=== PATIENT | male | born 1990 | race Caucasian/White ===

== ENCOUNTER 2017-09-30 12:24 | Emergency (ER) | payer OTHER ==
[~2017-09-30] VITALS: Ht 182.9 cm; Wt 122.5 kg
[2017-09-30 12:30] VITALS: BP 172/98
--- NOTE | 2017-09-30 12:33 | NUR ---
PT BIBA TAKEN TO ER BED 3
--- NOTE | 2017-09-30 12:50 | NUR ---
PATIENT IS A 27 YO MALE BIB EMS FROM HOME FOR SORE THROAT AND COUGH, AWAKE AND ALERT NO SOB OR CHEST PAIN. DENIES VOMITING OR DIARRHEA. TO BED 3 VIA AMBULATION
[2017-09-30] MEDS ORDERED: diphenhydrAMINE 50 MG/ML VIAL IM ONE (13:30)
[2017-09-30] MEDS ORDERED: methylPREDNISolone SS 125 MG in WATER STERILE 2 ML IM ONE (13:30)
[2017-09-30 14:10] LABS: BASOPHILS # (AUTO) 0.5 K/uL (0.00-0.22); BASOPHILS % (AUTO) 4.2 % (0.0-2.0); EOSINOPHILS # (AUTO) 0.2 K/uL (0-0.4); EOSINOPHILS % (AUTO) 1.8 % (0.0-4.0); HEMATOCRIT 48.7 % (36-52); HEMOGLOBIN 16.3 g/dL (12.0-18.0); LYMPHOCYTES # (AUTO) 1.7 K/uL (2.0-11.5); LYMPHOCYTES % (AUTO) 12.8 % (20.5-51.1); MEAN CORPUSCULAR HEMOGLOBIN 30 pg (27-31); MEAN CORPUSCULAR HGB CONC 34 g/dL (33-37); MEAN CORPUSCULAR VOLUME 88 fL (80-94); MONOCYTES # (AUTO) 0.5 K/uL (0.8-1.0); MONOCYTES % (AUTO) 3.5 % (1.7-9.3); NEUTROPHILS # (AUTO) 10.1 K/uL (1.8-7.7); NEUTROPHILS % (AUTO) 77.7 % (42.2-75.2); PLATELET COUNT (AUTO) 248 K/uL (140-450); RED BLOOD CELL COUNT(AUTO) 5.54 MIL/uL (4.20-6.10)
[2017-09-30 14:21] LABS: ANION GAP 11.3 (8-16); CARBON DIOXIDE 29.5 mmol/L (21-32); POTASSIUM 3.8 mmol/L (3.5-5.1)
--- NOTE | 2017-09-30 14:34 | NUR ---
PT TO CT VIA W/C ACCOMPANIED BY COMMODITY ANALYST
--- NOTE | 2017-09-30 14:53 | NUR ---
Clive penn in ED - 09/30/17 at 1457 by MARINO pt returned from ct via wheelchair; returned to [facility] without incident
--- NOTE | 2017-09-30 14:55 | NUR ---
Patient back from CT via wheelchair.
--- NOTE | 2017-09-30 15:02 | NUR ---
mother by bedside; nad; vss; pt sts "tightness" in throat is lessen; pt is aox4, rr are even and unlabored; pt able to drink approx 4 oz of water without difficultly.
--- NOTE | 2017-09-30 16:00 | NUR ---
Patient discharged with v/s stable. Written and verbal after care instructions given and explained. Patient alert, oriented and verbalized understanding of instructions. Ambulatory with steady gait. All questions addressed prior to discharge. ID band removed. Patient advised to follow up with PMD. Rx of Prednisone and Benadryl given. Patient educated on indication of medication including possible reaction and side effects. Opportunity to ask questions provided and answered.
[2017-09-30 16:01] VITALS: BP 135/85
== END 2017-09-30 16:00 | disposition home or self-care (01) ==
LOC: MED 12:24
DX: T78.40XA Allergy, unspecified, initial encounter (principal); X58.XXXA Exposure to other specified factors, initial encounter; Z88.0 Allergy status to penicillin
CPT/HCPCS: 36415; 70360; 70491; 80048; 85025; 96372; 99285; J1200; J2930; Q9967

== ENCOUNTER 2018-08-11 00:39 | Inpatient (IN) | payer OTHER ==
[~2018-08-11] VITALS: Ht 182.9 cm; Wt 131.1 kg
--- NOTE | 2018-08-11 | NUR ---
V/S TAKEN AND RECORDED. EXPLAINED TO PATIENT ABOUT PAIN MANAGEMENT AND TEACH RELAXATION/BREATHING TECHNIQUE TO REDUCE PAIN. PATIENT VERBALIZED UNDERSTANDING. CALL LIGHT WITHIN REACH. WILL CONTINUE TO MONITOR.
[2018-08-11 00:40] VITALS: BP 153/90
--- NOTE | 2018-08-11 00:40 | NUR ---
PT BROUGHT TO ED BED 8
--- NOTE | 2018-08-11 00:43 | NUR ---
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 +N/V. DENIES DIARRHEA, FEVERS, CP OR SOB. ABD IS SOFT, NON TENDER, NON DISTENDED, ROUND. +BS X 4 QUADRANTS. GCS 15
[2018-08-11] MEDS ORDERED: NACL 0.9% 1,000 ML IV ONE ×2 (00:57→02:35)
[2018-08-11] MEDS ORDERED: DICYCLOMINE HCL LIQUID 20 MG, ALUMINUM HYD/MAG/SIMETHICONE 30 ML, LIDOCAINE VISCOUS 2% ... PO ONE ×3 (01:00)
--- NOTE | 2018-08-11 01:20 | NUR ---
BLOOD SPECIMEN DROPPED OFF IN LAB
[2018-08-11] MEDS ORDERED: MORPHINE SULFATE 4 MG/ML SYR IVP ONE (01:25)
[2018-08-11] MEDS ORDERED: ONDANSETRON 4 MG/2 ML VIAL IVP ONE (01:25)
[2018-08-11 01:32] LABS: BASOPHILS % (AUTO) 0.1 % (0.0-2.0); EOSINOPHILS # (AUTO) 0.2 K/uL (0-0.4); HEMATOCRIT 41.7 % (36-52); HEMOGLOBIN 14.3 g/dL (12.0-18.0); LYMPHOCYTES # (AUTO) 2.3 K/uL (2.0-11.5); MEAN CORPUSCULAR HEMOGLOBIN 30 pg (27-31); MEAN CORPUSCULAR HGB CONC 34 g/dL (33-37); MEAN CORPUSCULAR VOLUME 87.8 fL (80-94); MONOCYTES % (AUTO) 6.3 % (1.7-9.3); NEUTROPHILS % (AUTO) 77.6 % (42.2-75.2); PLATELET COUNT (AUTO) 230 K/uL (140-450); RED BLOOD CELL COUNT(AUTO) 4.75 MIL/uL (4.20-6.10); RED CELL DISTRIBUTION WIDTH 13.5 % (11.6-13.7); WHITE BLOOD COUNT (AUTO) 15.5 K/uL (4.8-10.8)
[2018-08-11 01:51] LABS: ALBUMIN 3.4 g/dL (3.4-5.0); ANION GAP 11.6 (8-16); CREATININE 1.1 mg/dL (0.7-1.3); POTASSIUM 3.6 mmol/L (3.5-5.1); TOTAL BILIRUBIN 0.5 mg/dL (0.0-1.0)
[2018-08-11] MEDS ORDERED: HYDROmorphone 1 MG/ML AMP IVP ONE ×3 (02:05→06:15)
[2018-08-11] MEDS ORDERED: HYDROcodone/APAP 5/325 MG 1 TAB TAB PO PRN (05:25)
[2018-08-11] MEDS ORDERED: DOCUSATE SODIUM 100 MG GELCAP PO PRN (05:25)
--- NOTE | 2018-08-11 06:34 | NUR ---
Patient will be admitted to care of [facility]. Admited to 111A. Will go to room TELE. Belongings list completed. Report to ELVIRA LOGAN.
[2018-08-11 07:05] VITALS: BP 147/90
--- NOTE | 2018-08-11 07:15 | NUR ---
RECEIVED REPORT FROM NIGHT MICA MINER FARI. PT SLEEPING IN BED, AROUSABLE BY VOICE. C/O 04/23 ABDOMINAL PAIN. PT RECEIVED PAIN MEDICATION LESS THAN AN HOUR AGO. WILL NOTIFY DR. LEMON THAT PAIN IS NOT WELL-CONTROLLED ON CURRENT PAIN REGIMEN. SKIN INTACT. LUNGS CTA. HEART RHYTHM REGULAR. ABDOMEN SOFT AND NON-DISTENDED WITH BS PRESENT. TENDERNESS OF ABDOMEN TO PALPATION. IV SITE PATENT AND ASYMPTOMATIC, WILL START ON IVF PER MD ORDERS. PT IS AMBULATORY. ALL SAFETY PRECAUTIONS IN PLACE, WILL CONTINUE TO MONITOR.
--- NOTE | 2018-08-11 07:28 | NUR ---
PT SLEEPING IN BED NOW. WILL CHECK ON PATIENT AGAIN LATER.
[2018-08-11] MEDS ORDERED: MORPHINE SULFATE 2 MG/ML SYR IVP PRN (07:40)
[2018-08-11 07:42] LABS: PROTHROMBIN TIME 10.4 secs (10.8-13.4)
[2018-08-11 08:05] LABS: MAGNESIUM 1.7 mg/dL (1.8-2.4); PHOSPHORUS 3.6 mg/dL (2.5-4.9); THYROID STIMULATING HORMONE 3.78 uIU/mL (0.34-3.74)
[2018-08-11 08:08] LABS: AMYLASE 1685 U/L (25-115)
--- NOTE | 2018-08-11 08:52 | NUR ---
PT NOW COMPLAINING OF 10/10 ABDOMINAL PAIN. WILL NOTIFY DR. LEMON.
--- NOTE | 2018-08-11 08:57 | NUR ---
NOTIFIED DR. COHEN THAT PATIENT COMPLAINING OF 07/[address] COHEN WILL PUT IN ORDER FOR PAIN MED. Addendum: 08/11/18 at 1106 by Laura Whitten Meng RN NOTIFIED DR. LEMON THAT PATIENT COMPLAINING OF 07/[address] ELMON WILL PUT IN ORDER FOR PAIN MED.
[2018-08-11] MEDS ORDERED: oxyCODONE/APAP 5/325 MG 1 TAB TAB PO PRN (09:00)
--- NOTE | 2018-08-11 09:03 | NUR ---
PER BUTTER MAKER JOWIE, ADMINISTER THE MORPHINE NOW INSTEAD OF PERCOCET.
[2018-08-11] MEDS ORDERED: HYDROmorphone PFS 2 MG/ML SYR IVP SCH (09:50)
[2018-08-11] MEDS: NACL 0.9% 1,000 ML IV SCH ×2 (10:05→11:09)
--- NOTE | 2018-08-11 10:05 | NUR ---
ADMINISTERED DILAUDID IVP PER DR. PENN.
--- NOTE | 2018-08-11 11:08 | NUR ---
NOTIFIED DR. LEMON THAT MG2+ IS 1.7. TO PUT IN ORDERS. MADE AWARE THAT DILAUDID WAS EFFECTIVE AND PT IS NOW SLEEPING.
[2018-08-11 11:11] LABS: CHOL/HDL RATIO 6.1 (1-4.5); HDL CHOLESTEROL 31 mg/dL (40-60); LDL (CALC) 110 mg/dL (60-100); TRIGLYCERIDES 240 mg/dL (30-150)
[2018-08-11 12:00] VITALS: BP 149/87
[2018-08-11] MEDS ORDERED: MAGNESIUM OXIDE 400 MG TAB PO SCH (12:00)
--- NOTE | 2018-08-11 12:17 | NUR ---
NORCO PO ADMINISTERED. EXPLAINED TO PT THAT ALTHOUGH ORAL PILLS DO NOT TAKE EFFECT QUICKLY IVP PAIN MED, IT WILL PROVIDE GREATER LENGTH OF TIME FOR PAIN CONTROL. PT VERBALIZED UNDERSTANDING. WILL MONITOR.
[2018-08-11] MEDS: DEXT 5% /NACL 0.9% 1,000 ML IV SCH ×2 (12:19→22:35)
[2018-08-11] MEDS ORDERED: MORPHINE SULFATE 4 MG/ML SYR IVP PRN (14:00)
--- NOTE | 2018-08-11 15:24 | NUR ---
PT COMPLAINING OF EXTREME ABDOMINAL PAIN. WILL NOTIFY DR. LEMON.
--- NOTE | 2018-08-11 15:32 | NUR ---
NOTIFIED DR. LEMON THAT CURRENT PAIN REGIMEN IS NOT GIVING PATIENT ENOUGH RELIEF.
[2018-08-11] MEDS: HYDROmorphone PFS 2 MG/ML SYR IVP PRN ×2 (15:42→20:17)
[2018-08-11 16:00] VITALS: BP 147/87
--- NOTE | 2018-08-11 16:42 | NUR ---
PT SLEEPING IN BED WITH LIGHT SNORING. WILL CONTINUE TO MONITOR.
[2018-08-11] MEDS ORDERED: INFLUENZA VIRUS VACCINE QUAD 0.5 ML SYR IMVAC PRN (17:35)
[2018-08-11] MEDS: oxyCODONE/APAP 5/325 MG 1 TAB TAB PO PRN ×2 (17:55→22:31)
[2018-08-11] MEDS: ONDANSETRON 4 MG/2 ML VIAL IM/IVP PRN (18:00)
--- NOTE | 2018-08-11 18:00 | NUR ---
PT HAD SMALL AMOUNT OF LIGHT LUNA EMESIS LESS THAN 10 ML. ZOFRAN IVP ADMINISTERED.
--- NOTE | 2018-08-11 19:00 | NUR ---
DENIES NAUSEA/VOMITING, ONE HOUR AFTER ZOFRAN IVP.
--- NOTE | 2018-08-11 19:37 | NUR ---
ENDORSED PLAN OF CARE TO HOPPER OPERATOR RN. PT IN STABLE CONDITION.
--- NOTE | 2018-08-11 19:40 | NUR ---
RECEIVED PATIENT AWAKE RESTING ON BED. EXPLAINED PLAN OF CARE. PATIENT VERBALIZED UNDERSTANDING. CALL LIGHT WITHIN REACH. BED IN LOW LOCKED POSITION.
[2018-08-11 20:00] VITALS: BP 150/89
[2018-08-11 20:07] LABS: BARBITURATE, URINE NEG. ng/ml (NEG <=200); BENZODIAZEPINE, URINE NEG. ng/mL (NEG <=200); CANNABINOID, URINE NEG. ng/mL (NEG <=50); COCAINE, URINE NEG. ng/mL (NEG <=300); OPIATE, URINE POS. ng/mL (NEG <=2000); PHENCYCLIDINE SCREEN,URINE NEG. ng/mL (NEG <=25)
--- NOTE | 2018-08-11 20:17 | NUR ---
PAIN MEDICATION GIVEN . V/S TAKEN AND RECORDED. WILL CONTINUE TO MONITOR.
[2018-08-11 20:18] LABS: APPEARANCE,URINE CLEAR (CLEAR); BILIRUBIN,URINE NEGATIVE (NEGATIVE); BLOOD, URINE NEGATIVE (NEGATIVE); COLOR,URINE YELLOW (YELLOW); LEUKOCYTE ESTERASE ,URINE NEGATIVE (NEGATIVE); NITRITE, URINE NEGATIVE (NEGATIVE); UGLUCOSE NEGATIVE (NEGATIVE)
[2018-08-12] VITALS: BP 131/87
[2018-08-12] MEDS: HYDROmorphone PFS 2 MG/ML SYR IVP PRN ×2 (00:18→04:38)
--- NOTE | 2018-08-12 02:00 | NUR ---
SEEN PATIENT ASLEEP. CALL LIGHT WITHIN REACH. WILL CONTINUE TO MONITOR.
[2018-08-12] MEDS: oxyCODONE/APAP 5/325 MG 1 TAB TAB PO PRN (03:18)
[2018-08-12 04:00] VITALS: BP 131/92
[2018-08-12] MEDS: NACL 0.9% 1,000 ML IV SCH ×3 (06:51→16:48)
[2018-08-12 06:52] LABS: EOSINOPHILS % (AUTO) 0.1 % (0.0-4.0); HEMATOCRIT 40.2 % (36-52); HEMOGLOBIN 13.6 g/dL (12.0-18.0); LYMPHOCYTES # (AUTO) 1.4 K/uL (2.0-11.5); LYMPHOCYTES % (AUTO) 7.1 % (20.5-51.1); MEAN CORPUSCULAR HEMOGLOBIN 30 pg (27-31); MEAN CORPUSCULAR HGB CONC 34 g/dL (33-37); MEAN CORPUSCULAR VOLUME 88.4 fL (80-94); MONOCYTES # (AUTO) 1.2 K/uL (0.8-1.0); MONOCYTES % (AUTO) 6.3 % (1.7-9.3); NEUTROPHILS # (AUTO) 17.2 K/uL (1.8-7.7); NEUTROPHILS % (AUTO) 86.5 % (42.2-75.2); PLATELET COUNT (AUTO) 225 K/uL (140-450); RED BLOOD CELL COUNT(AUTO) 4.55 MIL/uL (4.20-6.10); RED CELL DISTRIBUTION WIDTH 13.2 % (11.6-13.7); WHITE BLOOD COUNT (AUTO) 19.9 K/uL (4.8-10.8)
[2018-08-12 06:57] LABS: ANION GAP 11.9 (8-16); CARBON DIOXIDE 27.5 mmol/L (21-32); CREATININE 0.9 mg/dL (0.7-1.3); POTASSIUM 3.4 mmol/L (3.5-5.1)
[2018-08-12 07:08] LABS: MAGNESIUM 1.8 mg/dL (1.8-2.4); PHOSPHORUS 3.1 mg/dL (2.5-4.9)
--- NOTE | 2018-08-12 07:15 | NUR ---
ENDORSEMENT GIVEN TO AM SHIFT RN AT BEDSIDE FOR CONTINUITY OF CARE. PATIENT IN STABLE CONDITION.
--- NOTE | 2018-08-12 07:16 | NUR ---
RECEIVED REPORT FROM TAKER OFF BRAKER MACHINE NURSE, PT IS AAOX4, RESTING IN BED, SEMI FOWLERS POSITION, AMBULATORY, IV IS ON THE LEFT AC, PATENT, INTACT, FLUSHING WELL, NO S/S OF RESPIRATORY DISTRESS OR DISCOMFORT NOTED, DISCUSSED PLAN OF CARE WITH PT, PT VERBALIZED UNDERSTANDING, SAFETY/FALL PRECAUTIONS ARE IN PLACE, CALL LIGHT IS WITHIN REACH, WILL CONTINUE TO MONITOR.
[2018-08-12 08:00] VITALS: BP 130/87
[2018-08-12] MEDS ORDERED: ALBUTEROL SULFATE/IPRATROPIU 3 ML SOL IH PRN (08:20)
[2018-08-12] MEDS ORDERED: KCL 20 MEQ/WATER INJ PREMIX 100 ML IV SCH (08:30)
[2018-08-12] MEDS: HYDROmorphone 1 MG/ML AMP IVP PRN ×3 (08:51→20:37)
--- NOTE | 2018-08-12 09:18 | NUR ---
ADMINISTERED POTASSIUM VIA IVPB FOR POTASSIUM LEVEL OF 3.4. PATIENT ALSO VERBALIZED PAIN OF 7/10. DILAUDID WAS ADMINISTERED IV PUSH. PATIENT TOLERATED MED ADMINISTRATIONS WELL. ALL NEEDS MET AT THIS TIME. WILL CONTINUE TO MONITOR.
--- NOTE | 2018-08-12 09:20 | NUR ---
PATIENT HAS BEEN SCREENED AND CATEGORIZED MODERATE NUTRITION RISK. PATIENT WILL BE SEEN WITHIN 3-5 DAYS OF ADMISSION. 08/13/18 08/15/[address]
--- NOTE | 2018-08-12 10:13 | NUR ---
CM NOTE PER [facility] CM COORDINATOR JORGE PH# [phone], THE ASSIGNED CM IS JOJO Espinoza PH# [phone] FAX# [phone]. PER [facility] CM JOJO PH# [phone], REVIEWS SHOULD BE SENT TO BOTH [facility] AND [facility]. SHE ALSO SAID THAT FOR ANY DC NEEDS TO CONTACT HER AT [facility].
[2018-08-12] MEDS: ONDANSETRON 4 MG/2 ML VIAL IM/IVP PRN (10:44)
[2018-08-12 12:00] VITALS: BP 135/88
--- NOTE | 2018-08-12 12:00 | NUR ---
PATIENT RESTING IN BED WITH EYES CLOSED. VITAL SIGNS ARE WITHIN NORMAL LIMITS. CALL LIGHT WITHIN REACH AND BED IN LOW POSITION. ALL NEEDS MET AT THIS TIME. WILL CONTINUE TO MONITOR.
[2018-08-12] MEDS: ACETAMINOPHEN 325 MG TAB PO PRN (14:31)
--- NOTE | 2018-08-12 14:41 | NUR ---
PATIENT COMPLAINED OF FEELING HOT. TEMPERATURE WAS TAKEN AND READ 101.4. PRN TYLENOL WAS GIVEN. PATIENT TOLERATED WELL. WILL CONTINUE TO MONITOR AND RECHECK TEMPERATURE FOR MED EFFECTIVENESS.
[2018-08-12] MEDS ORDERED: MORPHINE SULFATE 2 MG/ML SYR IVP SCH (15:00)
--- NOTE | 2018-08-12 16:27 | NUR ---
PER NUCLEAR MED TECH. MORPHINE NOT GIVEN, IT WAS NOT NEEDED FOR HIDA SCAN.
--- NOTE | 2018-08-12 17:17 | NUR ---
Initial review faxed to [facility] and [facility] along with H&P.
[2018-08-12] MEDS: LACTATED RINGERS 1,000 ML IV SCH ×2 (17:48→22:25)
--- NOTE | 2018-08-12 18:35 | NUR ---
PATIENT RESTING IN BED WITH EYES CLOSED. EASILY AROUSED BY NAME. PT STATES THAT ALL NEEDS ARE MET AT THIS TIME. WILL CONTINUE TO MONITOR.
[2018-08-12] MEDS ORDERED: LEVOFLOXACIN 750 MG/D5W PREMIX 150 ML IV SCH (19:00)
--- NOTE | 2018-08-12 19:23 | NUR ---
ENDORSED PATIENT TO SIGNAL HELPER NURSE FOR CONTINUITY OF CARE. PATIENT IN STABLE CONDITION. ALL NEEDS MET AT THIS TIME.
--- NOTE | 2018-08-12 19:25 | NUR ---
RECEIVED PATIENT AWAKE RESTING ON BED. EXPLAINED PLAN OF CARE AND VERBALIZED UNDERSTANDING. CALL LIGHT WITHIN REACH.PATIENT AA0X4, AMBULATORY. SKIN INTACT. WILL CONTINUE TO MONITOR.
[2018-08-12] MEDS: LEVOFLOXACIN 750 MG/D5W PREMIX 150 ML IV SCH (19:31)
--- NOTE | 2018-08-12 22:35 | NUR ---
ENDORSED PATIENT TO GER RN. PATIENT IN STABLE CONDITION.
--- NOTE | 2018-08-12 22:36 | NUR ---
RECEIVED FROM ANOTHER RN AWAKE , ALERT AND SITTING AT THE EDGE OF BED READING. VERBALIZING WELL. DENIES PAIN AT THIS TIME. CALL LIGHT WITH IN REACH. PT. PER PREVIOUS RN PT. AMBULATING WELL . INDEPENDENT. STILL ON NPO. PT. AWARE. IVF SITE TO LAC #20 INTACT AND INFUSING WELL. NO INFILTRATION NOTED. ENCOURAGED TO CALL FOR ANY HELP HE MAY NEED OR IF IN PAIN. DX. PANCREATITIS. DENIES PAIN AT THIS TIME. MEDICATED PRN.
--- NOTE | 2018-08-13 00:28 | NUR ---
SLEEPING AT THIS TIME. CALL LIGHT WITH IN REACH. ABLE TO VERBALIZE NEEDS WELL.
[2018-08-13 00:29] VITALS: BP 132/89
[2018-08-13] MEDS: LACTATED RINGERS 1,000 ML IV SCH ×4 (00:37→17:29)
--- NOTE | 2018-08-13 01:57 | NUR ---
PATIENT ASKED FOR HHNTX. PT STATES HE FEELS SOB. PT IS IN ALOT OF PAIN. SATS 100% ON ROOM AIR. BS ARE DECREASED BILAT
[2018-08-13] MEDS: HYDROmorphone 1 MG/ML AMP IVP PRN (02:30)
--- NOTE | 2018-08-13 02:33 | NUR ---
PT.REQUESTED FOR PAIN RELIEVER AT THIS TIME. NEW IVF/LEFT FOREARM #22/ SITE INSERTED BY CHARGE NURSE RT PREVIOUS IVF SITE INFILTRATED. TOLERATED NEW LINE WELL. GOOD BLOOD RETURN . COMPLAINED OF 7/10 PAIN AT THIS TIME.
[2018-08-13 04:51] VITALS: BP 130/84
--- NOTE | 2018-08-13 05:41 | NUR ---
PT. AWAKE AT THIS TIME. SITTING UP AT EDGE OF BED. ABLE TO VERBALIZE NEEDS WELL. NO SOB. NO PAIN COMPLAINT DONE.
--- NOTE | 2018-08-13 06:35 | NUR ---
PT. IN BED TRYING TO SLEEP. ENCOURAGED TO RELAXE. WANTS SLEEPING PILL. EXPLAINED TO HIM I CAN NOT RT IT IS DAYTIME AT THIS TIME. DENIES PAIN. STATED HE IS JUST WITH INSOMNIA.
--- NOTE | 2018-08-13 07:30 | NUR ---
RECEIVED REPORT FROM MEDICAL RECORD RETRIEVAL SPECIALIST NURSE, PT IS AAOX4, RESTING IN BED, SEMI FOWLERS POSITION, AMBULATORY, IV IS ON THE LEFT AC, PATENT, INTACT, FLUSHING WELL, NO S/S OF RESPIRATORY DISTRESS OR DISCOMFORT NOTED, DISCUSSED PLAN OF CARE WITH PT, PT VERBALIZED UNDERSTANDING, SAFETY/FALL PRECAUTIONS ARE IN PLACE, CALL LIGHT IS WITHIN REACH, WILL CONTINUE TO MONITOR.
[2018-08-13 07:59] LABS: BASOPHILS % (AUTO) 0.2 % (0.0-2.0); EOSINOPHILS % (AUTO) 0.1 % (0.0-4.0); HEMATOCRIT 37.5 % (36-52); HEMOGLOBIN 12.7 g/dL (12.0-18.0); LYMPHOCYTES # (AUTO) 1.6 K/uL (2.0-11.5); LYMPHOCYTES % (AUTO) 8.5 % (20.5-51.1); MEAN CORPUSCULAR HEMOGLOBIN 30 pg (27-31); MEAN CORPUSCULAR HGB CONC 34 g/dL (33-37); MEAN CORPUSCULAR VOLUME 88.2 fL (80-94); MONOCYTES # (AUTO) 1.3 K/uL (0.8-1.0); MONOCYTES % (AUTO) 6.7 % (1.7-9.3); NEUTROPHILS # (AUTO) 16.3 K/uL (1.8-7.7); NEUTROPHILS % (AUTO) 84.5 % (42.2-75.2); PLATELET COUNT (AUTO) 203 K/uL (140-450); RED BLOOD CELL COUNT(AUTO) 4.25 MIL/uL (4.20-6.10); RED CELL DISTRIBUTION WIDTH 13.3 % (11.6-13.7); WHITE BLOOD COUNT (AUTO) 19.3 K/uL (4.8-10.8)
[2018-08-13] MEDS ORDERED: MORPHINE SULFATE 4 MG/ML SYR IVP PRN (08:00)
[2018-08-13 08:18] LABS: ANION GAP 13.3 (8-16); CARBON DIOXIDE 27.1 mmol/L (21-32); POTASSIUM 3.4 mmol/L (3.5-5.1)
[2018-08-13 08:28] LABS: MAGNESIUM 1.6 mg/dL (1.8-2.4); PHOSPHORUS 2.6 mg/dL (2.5-4.9)
[2018-08-13] MEDS ORDERED: SIMETHICONE 80 MG TAB.CHEW PO SCH (09:00)
[2018-08-13] MEDS ORDERED: SENNA 8.6 MG TAB PO SCH (09:00)
[2018-08-13] MEDS ORDERED: PANTOPRAZOLE 40 MG INJ VIAL IVP SCH (09:00)
[2018-08-13] MEDS: oxyCODONE/APAP 5/325 MG 1 TAB TAB PO PRN (09:05)
[2018-08-13] MEDS ORDERED: MAG SULF 2000 MG/WATER PREMIX 50 ML IV ONE (09:15)
--- NOTE | 2018-08-13 09:48 | NUR ---
PATIENT SITTING ON EDGE OF BED. SCHEDULED MEDS WERE ADMINISTERED AND TOLERATED WELL. ALL NEEDS MET AT THIS TIME. WILL CONTINUE TO MONITOR.
[2018-08-13] MEDS ORDERED: KCL 20 MEQ/WATER INJ PREMIX 200 ML IV SCH (10:00)
--- NOTE | 2018-08-13 12:50 | NUR ---
PATIENT COMPLAINED OF HAVING A MINOR ALLERGIC REACTION TO SOMETHING HE ATE. THE TIP OF HIS FINGER WAS REDDENED BUT NO VISIBLE SWELLING WAS NOTED. HE DENIED ANY OTHER SYMPTOMS. I NOTIFIED DR. WEEMS WHO PRESCRIBED BENADRYL. WILL CONTINUE TO MONITOR PATIENT FOR MED EFFECTIVENESS.
[2018-08-13] MEDS ORDERED: KETOROLAC 30 MG/ML VIAL IVP SCH (13:30)
[2018-08-13] MEDS ORDERED: CYCLOBENZAPRINE 10 MG TAB PO SCH (13:30)
--- NOTE | 2018-08-13 13:50 | NUR ---
PATIENT IS SLEEPING IN BED COMFORTABLY. NO SIGNS OF PAIN AT THIS MOMENT. TORADOL WAS HELD FOR NOW.
[2018-08-13] MEDS ORDERED: METOPROLOL 25 MG TAB PO SCH (14:00)
[2018-08-13] MEDS: ACETAMINOPHEN 325 MG TAB PO PRN (15:47)
[2018-08-13] MEDS: MAGNESIUM SULFATE 1GM in DEXTROSE 5% 100 ML PREMIX IV SCH ×2 (15:49→16:49)
[2018-08-13 16:00] VITALS: BP 130/81
[2018-08-13] MEDS: LEVOFLOXACIN 750 MG/D5W PREMIX 150 ML IV SCH (18:43)
--- NOTE | 2018-08-13 19:22 | NUR ---
ENDORSED PATIENT TO NEWS TECHNICAL DIRECTOR NURSE FOR CONTINUITY OF CARE. PATIENT IN STABLE CONDITION. ALL NEEDS MET AT THIS TIME.
--- NOTE | 2018-08-13 19:23 | NUR ---
RECEIVED REPORT FROM DAYSHIFT NURSE AT BEDSIDE FROM MENG FOR CONTINUITY OF CARE. PT AAOX4. PT IV NOTED LFA 22G LR. NO SOB NO S/S OF DISTRESS ON RA. AMBULATORY. BED LOWERED CALL LIGHT WITHIN REACH. PT IS CURRENTLY BEING DISCHARGE WAITING FOR RIDE. WILL CONTINUE TO MONITOR.
--- NOTE | 2018-08-13 19:40 | NUR ---
PT RIDE IS HERE. D/C FLUIDS AND IV CANNULA INTACT, REMOVED ID BRACELET. PT HAS ALL BELONGINGS AND PAPERWORK IN HAND. PT OFF FLOOR WALKING AT 1940.
== END 2018-08-13 19:40 | disposition home or self-care (01) | DRG 282 ==
LOC: MED 00:39 → MTU 05:21
PROVIDERS: ADMIT General Practice; ATTEND General Practice
DX: K85.90 Acute pancreatitis without necrosis or infection, unspecified (principal); E66.01 Morbid (severe) obesity due to excess calories; E83.42 Hypomagnesemia; Z68.39 Body mass index [BMI] 39.0-39.9, adult; I10 Essential (primary) hypertension; E87.6 Hypokalemia; J45.909 Unspecified asthma, uncomplicated; Z23 Encounter for immunization; Z88.0 Allergy status to penicillin; E78.1 Pure hyperglyceridemia; E02 Subclinical iodine-deficiency hypothyroidism; E78.5 Hyperlipidemia, unspecified; D72.829 Elevated white blood cell count, unspecified
CPT/HCPCS: 36415; 71045; 76700; 78445; 80048; 80053; 80305; 81003; 82150; 83036; 83605; 83615; 83690; 83735; 83880; 84100; 84439; 84443; 84478; 85025; 85610; 85730; 87081; 90658; 93005; 94640; 96361; 96374; 96375; 96376; 99285; A9510; C9113; G0482; J1170; J1956; J2270; J2405; J3480; J7030; J7042; J7120; J7620; Q0092; Q0163